=== PATIENT | male | born 1950 | race Caucasian/White ===

== ENCOUNTER 2018-12-30 07:40 | Day surgery (SDC) | payer OTHER ==
[2018-12-28 09:22] LABS: HEMATOCRIT 42.3 % (42.0-54.0); HEMOGLOBIN 14.8 g/dL (13.5-17.5); MCH 31.3 pg (26.0-34.0); MCV 89.4 fL (80.0-100.0); MEAN PLATELET VOLUME 10.4 fL (7.4-10.4); RBC 4.73 10x6/uL (4.20-6.10); RDW 12.8 % (11.5-14.5)
[2018-12-28 09:31] LABS: CALC OSMOLALITY 290 mosm/kg (275-300); CARBON DIOXIDE 29.7 mmol/L (21.0-32.0); CHLORIDE - SERUM 104 mmol/L (98-107); GLUCOSE 162 mg/dL (74-106); POTASSIUM - SERUM 4.3 mmol/L (3.5-5.1); SODIUM 141 mmol/L (136-145); UREA NITROGEN 29 mg/dL (7-18); eGFR NON AFRICAN AMERICAN 79 mL/min (90-120)
[~2018-12-30] VITALS: Ht 177.8 cm; Wt 119.3 kg
[~2018-12-30 07:40] MED LIST: COZAAR25 MG PO; FLOMAX0.4 MG PO; GLIMEPIRIDE2 MG PO; GLUCOPHAGE1000 MG PO; LIPITOR40 MG PO; SULFAMETHOXAZOL1 TA3 PO
[2018-12-30 08:34] VITALS: BP 116/68; Ht 177.8 cm; Wt 119.3 kg
--- NOTE | 2018-12-30 12:10 | NUR ---
REC'D FROM SURGERY. NO FAMILY AT BEDSIDE. SODA AND FL TRAY BROUGHT TO PT.
--- NOTE | 2018-12-30 12:40 | NUR ---
TOLERATED DIET. NO URGE TO VOID.
--- NOTE | 2018-12-30 13:10 | NUR ---
NURSE AND PATIENT ATTEMPTED TO CALL PATIENT'S RIDE WITH NO SUCCESS. STILL NO URGE TO VOID.
--- NOTE | 2018-12-30 13:39 | OP ---
PATIENT NAME: MICHAEL BEY MEDICAL RECORD: [id number] :52 LOCATION:[facility] ADMISSION DATE: SURGEON: MICHAEL ALLEN MD DATE OF OPERATION: 12/30/2018 SURGEON: Michael Allen MD ANESTHESIA: TIVA by Rajendra Bentley CRNA DIAGNOSES: Elevated PSA of 5.0, bladder outlet obstruction. PROCEDURES: Cystoscopy, transrectal ultrasound, and prostate biopsy. FINDINGS: On cystoscopy, large obstructive lateral lobes with intraprostatic stones. No median lobe. Single ureteral orifices bilaterally with no bladder tumors. On transrectal ultrasound, he had a 68-gram prostate with intraprostatic stones causing shadowing. SPECIMENS: Prostate biopsy cores. BLOOD LOSS: Minimal. CLINICAL HISTORY: This is a 68-year-old male who was referred with an elevated PSA of 5.0 on 11/16/2018. He moved here from [place], [place]. His physician in [place] did not mention anything about an elevated PSA to him. He does not have a family history of prostate cancer. He does have significant voiding symptoms even though he has been on Flomax for 3 years. He has nocturia, weak flow, and postvoid dribbling. His IPSS score is 29 and quality of life score is 6. On rectal examination, he has an enlarged prostate, somewhere between 50-60 grams by estimation on LYNSEY. HE IS ALLERGIC TO CECLOR. He was given Levaquin IV on-call to the OR. DESCRIPTION OF PROCEDURE: The patient was given IV sedation. He was then placed into lithotomy position and prepped and draped. A 17-Maltese cystoscope was used for visualization with a 30-degree lens. The penile urethra showed no strictures. The prostatic urethra was highly obstructed. There were actually trapped prostatic stones within the prostatic urethra. By passing the scope through, I managed to free these stones. Going into the bladder, the bladder was mildly trabeculated. There were single ureteral orifices on each side. No bladder tumors were seen. The bladder was emptied through the cystoscope sheath and the scope was removed. It should also be noted that the prostatic urethra was quite vascular. We then placed the transrectal ultrasound probe into the rectum and obtained prostate size measurements. Obtaining the size of the prostate was difficult due to the large number of prostatic stones causing shadowing. It was difficult to estimate the anterior extent of the prostate; however, we came up with an estimate of 68 grams. Sextant biopsies were then obtained with at least 3 cores from each sextant. During these biopsy needle passages, one of the needle passes must have entered through into the prostatic urethra as the patient had bleeding per the urethra. Once all the specimens were obtained, the procedure was terminated. I will see the patient in followup next week to review the pathology results with him. TRANSINT:[id number] Voice Confirmation ID: [id number] DOCUMENT ID: [id number] OPERATIVE REPORT [id number] MICHAEL BEY ROBERT S MD at 1339 CC: [id number] DICTATION DATE: 12/30/18 1204 SEO ASSISTANT: 12/30/18 1319 REG [facility] [address] [place] [address]
--- NOTE | 2018-12-30 13:55 | NUR ---
FREDY BROUGHT TO PATIENT.
--- NOTE | 2018-12-30 14:35 | NUR ---
STILL UNABLE TO VOID. SODA, CHOCOLATE ICE CREAM AND PUDDING BROUGHT TO PATIENT. TRANSPORTATION HERE. PATIENT WANTS TO TRY AND DRINK ALITTLE MORE SO HE WON'T HAVE TO GET A ALVARADO CATHETER.
--- NOTE | 2018-12-30 15:00 | NUR ---
VOIDED WITHOUT DIFFICULTY.
--- NOTE | 2018-12-30 15:05 | NUR ---
IV DC'D WITH CATHETER INTACT.
--- NOTE | 2018-12-30 15:20 | NUR ---
WRITTEN AND VERBAL DC INST. GIVEN TO PT. VERBALIZED UNDERSTANDING.
--- NOTE | 2018-12-30 15:30 | NUR ---
DC'D HOME WITH FAMILY VIA PRIVATE VEHICLE. TAKEN TO VEHICLE VIA WC. STABLE AT TIME OF DC.
== END 2018-12-30 15:30 | disposition home or self-care (01) ==
LOC: D.OPS 07:40 → D.PAN 08:50 → D.OPS 09:00
PROVIDERS: Anesthesiology; ATTEND Urology
DX: N13.8 Other obstructive and reflux uropathy (principal); R97.20 Elevated prostate specific antigen [PSA]

== ENCOUNTER 2019-03-01 06:00 | Day surgery (SDC) | payer OTHER ==
[2019-02-28 15:52] LABS: HEMATOCRIT 44.9 % (42.0-54.0); HEMOGLOBIN 15.5 g/dL (13.5-17.5); MCH 30.8 pg (26.0-34.0); MCHC 34.5 g/dL (31.0-37.0); MCV 89.3 fL (80.0-100.0); MEAN PLATELET VOLUME 10.8 fL (7.4-10.4); RBC 5.03 10x6/uL (4.20-6.10); RDW 13.8 % (11.5-14.5); WBC 6.9 10x3/uL (4.8-10.8)
[2019-02-28 16:23] LABS: CALC OSMOLALITY 281 mosm/kg (275-300); CALCIUM 9.1 mg/dL (8.5-10.1); CARBON DIOXIDE 30.4 mmol/L (21.0-32.0); CHLORIDE - SERUM 103 mmol/L (98-107); SODIUM 140 mmol/L (136-145); UREA NITROGEN 20 mg/dL (7-18); eGFR NON AFRICAN AMERICAN 79 mL/min (90-120)
[2019-02-28 16:33] LABS: GLUCOSE 107 mg/dL (74-106)
[~2019-03-01] VITALS: Ht 177.8 cm; Wt 119.3 kg
[~2019-03-01 06:00] MED LIST changes: +ASPIRIN81 MG PO
[2019-03-01 06:31] VITALS: BP 146/88; Ht 177.8 cm; Wt 119.3 kg
[2019-03-01] MEDS ORDERED: OXYBUTYNIN CHLOR5 M1 PO (10:24)
--- NOTE | 2019-03-01 10:50 | NUR ---
EDUCATION DONE WITH PATIENT DEMONSTRATING HOW TO CHANGE ALVARADO BAG TO LEG BAG AND HOW TO CARE FOR CATHETER. PATIENT AMBULATING AROUND ROOM WITHOUT DIZZINESS OR UNSTEADINESS. DISCHARGE INSTRUCTIONS REVIEWED WITH PATIENT AND FRIEND. DISCHARGED HOME VIA WHEELCHAIR TO PRIVATE VEHICLE WITH FRIEND AT 1059
--- NOTE | 2019-03-01 11:21 | OP ---
PATIENT NAME: MICHAEL BEY MEDICAL RECORD: [id number] :54 LOCATION:[facility] ADMISSION DATE: SURGEON: MICHAEL ALLEN MD DATE OF OPERATION: 03/01/2019 SURGEON: Michael Allen MD ANESTHESIA: TIVA by Dona Burleson CRNA. DIAGNOSES: Obstructive BPH. PSA is 5.0. Transrectal ultrasound shows a 68-gram prostate. Pathology on biopsy was benign. IPSS score is 29 and quality of life score is 6, on Flomax. PROCEDURE: UroLift times 6 units implanted. FINDINGS: Long obstructive lateral lobes with no median lobe. The prostatic urethra was very vascular prostatic stones were seen. He has a heavily trabeculated bladder with no bladder tumors. BLOOD LOSS: Minimal. CLINICAL HISTORY: This is a 69-year-old male with a long history of obstructive BPH. He has been on Flomax for 3 years. He does not get lightheaded from Flomax. He has nocturia times 1 to 2 and a weak urinary stream with postvoid dribbling. He had an elevated PSA and he had a transrectal ultrasound and prostate biopsy. This was benign for cancer. He comes now to have the obstructive BPH treated with a UroLift procedure. HE IS ALLERGIC TO CECLOR. However, he did tolerate Ancef and we gave him Ancef property consultant to the OR. DESCRIPTION OF PROCEDURE: The patient was given IV sedation. He was then placed into lithotomy position and prepped and draped. We inserted lidocaine jelly into the urethra. The UroLift scope was introduced and there were no penile urethral strictures. The prostatic urethra was very vascular and there were prostatic stones seen within the urethra. As the scope passed the superficial prostatic stones, they dropped off into the urethra. This also caused some bleeding. The bladder neck was not obstructive. There was no median lobe. Going into the bladder, no bladder tumors were seen. He has bilateral single ureteral orifices with a very heavily trabeculated bladder. About 1.5 cm distal to the bladder neck at the anterior lateral sulcus of the lateral lobe, we placed 1 UroLift unit on each side. The needles hit the bone, but I managed to remove the pressure and relocate the needle so that it could fire completely. I then reapplied pressure and fired the unit. These units held. Two more units were placed at the level of the verumontanum, one on each side. Looking at the prostatic urethra, it was clear there was still obstruction in the mid portion of this long urethra. One unit on each side was also placed at the anterior lateral sulcus of the mid portion of the urethra. This left a total of 6 units placed in this prostate. He now had a clear open urethral channel. Due to the vascularity of the prostate, there was significant gross hematuria. I left the bladder partly full and I inserted a 16-Guyanese Cordova catheter into the bladder. I will allow this catheter to drain the hematuria up to 1 week. We will then have him back in the clinic for a voiding trial. TRANSINT:[id number] Voice Confirmation ID: [id number] DOCUMENT ID: [id number] OPERATIVE REPORT [id number] MICHAEL BEY, MICHAEL Saldivar MD at 1121 CC: [id number] DICTATION DATE: 03/01/19 0944 REAL ESTATE REPRESENTATIVE: 03/01/19 1115 REG [facility] [address] [place] [address]
== END 2019-03-01 10:58 | disposition home or self-care (01) ==
LOC: D.OPS 06:00 → D.PAN 07:30 → D.OPS 07:30 → D.PAN 08:15 → D.OPS 08:15
PROVIDERS: Anesthesiology; ATTEND Urology
DX: N40.1 Benign prostatic hyperplasia with lower urinary tract symptoms (principal); N13.8 Other obstructive and reflux uropathy; N32.89 Other specified disorders of bladder; Z01.812 Encounter for preprocedural laboratory examination

== ENCOUNTER → 2019-04-11 18:15 | Outpatient (CLI) | payer OTHER ==
[2019-03-01 06:31] VITALS: BMI 37.8
[~2019-04-11 18:15] MED LIST changes: +OXYBUTYNIN CHLOR5 M1 PO
== END | disposition home or self-care (01) ==
LOC: D.LABREF 18:15
PROVIDERS: ATTEND Urology
DX: N39.0 Urinary tract infection, site not specified (principal)